=== PATIENT | male | born 1960 | race Caucasian/White ===

== ENCOUNTER 2019-09-06 09:37 | Outpatient (CLI) | payer BC, SELFPAY ==
--- NOTE | 2019-09-06 09:40 | ECG_ITS ---
Measurements Intervals [place] Rate: 55 P: -8 MD: 134 QRS: 28 QRSD: 126 T: 30 QT: 407 QTc: 391 Interpretive Statements SINUS BRADYCARDIA INTRAVENTRICULAR CONDUCTION DELAY DELAYED PRECORDIAL R/S TRANSITION VOLTAGE CRITERIA FOR LVH ST ELEVATION IN DIFFUSE, PROBABLY EARLY REPOLARIZATION BASELINE ARTIFACT- I, II, III, AVR, AVL, AVF BORDERLINE ECG Electronically Signed On 09-06-2019 11:04:29 SCREENING TECH by Walt Walker D.O.
== END 2019-09-06 09:38 | disposition home or self-care (01) ==
LOC: ANHSURGERY 09:40
PROVIDERS: PCP Family Medicine Sports Medicine; Visit Provider Orthopaedic Surgery
DX: Z01.810 Encounter for preprocedural cardiovascular examination (principal); M75.101 Unspecified rotator cuff tear or rupture of right shoulder, not specified as traumatic
CPT/HCPCS: 93005

== ENCOUNTER 2019-09-17 00:47 | Day surgery (SDC) | payer BC, SELFPAY ==
[2019-09-04 14:38] VITALS: BMI 21.9
--- NOTE | 2019-09-16 15:55 | WPDANESEPP ---
Anes - Eval Pre Procedure Procedure: Operation Date: 09/17/19 07:30 Proposed Procedures p Right Rotator Cuff Repair with Distal Clavicle Excision - Merlin Macias MD Date/Time: 09/16/19 15:55 Surgeon: Tez Macias MD Pre Op Diagnosis: Right Rotator Cuff Tear with AC Arthritis Patient Data Age: 59 Gender: M Height: 5 ft 7.5 in Weight: 64.41 kg Allergies Allergy/AdvReac Type Severity Reaction Status Date / Time No Known Allergies Allergy Verified 09/04/19 14:38 Home Medications Medication Instructions Recorded Confirmed Type zolpidem 10 mg tablet 10 mg PO HS 09/04/19 09/04/19 History ECG: Patient: Ronaldo Duron MMR#: [id number] : [id number]:[id number] Age/Sex: 59 / MADM Date: 09/06/19 Loc: [facility] Attending Dr: Merlin Macias MD Ordering Physician: Guanaco Almendarez DO Date of Service: 09/06/19 Procedure(s): CA 12 lead EKG Accession Number(s): [id number] cc: ~ Measurements Intervals [place] Rate: 55 P: -8 [place]: 134 QRS: 28 QRSD: 126 T: 30 QT: 407 QTc: 391 Interpretive Statements SINUS BRADYCARDIA INTRAVENTRICULAR CONDUCTION DELAY DELAYED PRECORDIAL R/S TRANSITION VOLTAGE CRITERIA FOR LVH ST ELEVATION IN DIFFUSE, PROBABLY EARLY REPOLARIZATION BASELINE ARTIFACT- I, II, III, AVR, AVL, AVF BORDERLINE ECG Electronically Signed On 09-06-2019 11:04:29 BUSINESS JOB TITLES by Walt Walker D.O. 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
[2019-09-17] VITALS (7 sets, daily range): BP systolic 96–148; BP diastolic 59–89; PULSE 51–83; RESP 12–18; TEMP 36.2–36.4; O2SAT 97–100
[2019-09-17] MEDS: LACTATED RINGERS 1,000 ML 30 ML IV CONT ×2 (06:40→09:15)
--- NOTE | 2019-09-17 06:59 | P.PNAN_ITS ---
Anes - Eval Final PreProcedure Day of Procedure 09/17/19 06:59 Patient weight: normal Heart: regular rate and rhythm Lungs: clear to auscultation and normal air movement Airway: Mallampati scale class II Neurological: alert and oriented Last oral intake: >/= 8 hours ASA classification: II Emergent: no Anesthetic plan: proceed Anesthesia type and monitoring: general ETT Informed Consent: The patient's anesthetic plan and its attendant risks and be nefits were discussed with the patient/family/POA. Questions were solicited and answers provided to the satisfaction of the patient/family/POA.
--- NOTE | 2019-09-17 07:08 | WPDANESPNB ---
Anes - Peripheral Nerve Block Date/Time: 09/17/19 07:08 I have discussed with the patient/family/POA the placement of a peripheral nerve block for post-operative pain management, including associated risks, benefits, complications, and side effects. Alternative methods of post-operative analgesia were detailed. Questions were solicited and answers provided to the satisfaction of the patient/family/POA. Time-Out: A pre-procedural Time-Out was completed immediately before starting the procedure and confirmed: Patient Identification, Site, Procedure, Patient Position and the Availability of Requisite Equipment. Clinical Indications: Acute post-operative pain management requested by the operative surgeon. Nerve Block Insertion Note Anes-nerve block: supraclavicular right Patient position: supine Skin prep: chlorhexidine Needle: 22 gauge, stimulating, insulated echogenic needle. Needle length: 80 mm Technique: ultrasound (in plane) Injectate: bupivacaine 0.5% with epi 5 mcg/ml (20cc) Observations: tolerated well Complications: none Procedure start time:: 735 Procedure end time:: 740
--- NOTE | 2019-09-17 07:35 | WPDHPUPDATE1 ---
History and Physical Update Update Date/Time: 09/17/19 07:35 History and Physical has been reviewed, including an updated exam of the patient. There are NO changes in the patient's condition. Risks, benefits, and alternatives have been discussed and questions answered. Patient agrees to proceed with procedure.
[2019-09-17] MEDS: ceFAZolin 2 GM/D5W 50 ML 2 GM/50 ML BAG IVPB (07:49)
[2019-09-17] MEDS: BUPIVACAINE/EPINEPHRINE 0.25% 10 ML VIAL INFILTRATE (08:21)
--- NOTE | 2019-09-17 09:16 | PM.PROC ---
Procedure Note - Detailed Date of procedure: 09/17/19 Pre-op diagnosis: Right Rotator Cuff Tear with AC Arthritis Post-op diagnosis: same Procedure performed: Right shoulder open anterior acromioplasty, distal clavicle excision with repair of the rotator cuff Description of procedure: Patient was identified and proper site identified. In the preop holding area the anesthesia team performed a right upper extremity block. He was then taken to the operating room and transferred to the or table taking care to pad his torso and extremities. After general anesthetic induction and intubation, he was put in a semi beach chair position in the usual manner for right shoulder procedure. His head was secured taking care to neither rotate nor extend the head and neck. The right upper extremity was prepped and draped free in usual sterile fashion. The subcutaneous tissue in the area of the incision was injected with 10 cc of 0.25% Marcaine and epinephrine solution. An oblique anterior incision was made extending from the AC joint distally in line with the fibers of the deltoid. Subcutaneous tissue was sharply dissected down to the deltoid fascia. The deltoid was dissected off the anterior portion of the acromion in the distal end of the clavicle. A 2 cm split was made at the junction between the anterior and middle thirds of the deltoid. Using the microsagittal saw the last 8 mm of clavicle removed. The saw was also used to perform the acromioplasty and then the undersurface of the acromion was rasped smooth. There was abundant thickened bursa which was sharply debrided for complete inspection of the rotator cuff. Corresponding to a was seen on the MRI, there was an area of marked thinning of the supraspinatus off of the anterior portion of the greater tuberosity. The thinned portion of the tendon was incised and the tendon edge freshened up. Tuberosity was also prepared for the repair. The rotator cuff was repaired back to the greater tuberosity with #2 Ethibond suture passed through a bony bridge giving a rankin repair which was stable as the shoulder was taken through range of motion. The wound was irrigated with sterile antibiotic solution. The deltoid was repaired back to the acromion with 2. Ethibond suture passed through bone and the remainder of the deltoid repair carried out with 2. Vicryl. Subcutaneous tissue was reapproximated with 2. Strata fix and then tissue adhesive used for the skin. Sterile dressing was applied. There were no known intraoperative complications, and perioperative antibiotics were administered. Anesthesia: GETA and regional (Right upper extremity block) Surgeon: Merlin Macias MD Barrel Lathe Operator: Tamela Estimated blood loss (mL): 20 Drains: No Packing: No Pathology: none sent Complications: No immediate complications Condition: stable Disposition: PACU
--- NOTE | 2019-09-17 11:04 | SUR.PHASEII ---
PT AND SPOUSE REQUESTED THAT I CALL DR. CRESPO TO CONFIRM THAT PT WILL NOT BE TAKING AN ANTIBIOTIC AT HOME.
== END 2019-09-17 11:00 | disposition home or self-care (01) ==
PROVIDERS: Visit Provider Orthopaedic Surgery
PROC: (CPT 23420; principal; 2019-09-17 07:30)
DX: M75.101 Unspecified rotator cuff tear or rupture of right shoulder, not specified as traumatic (principal); M19.011 Primary osteoarthritis, right shoulder; G89.18 Other acute postprocedural pain; Z87.891 Personal history of nicotine dependence
CPT/HCPCS: 23412; 23120; 64415; A4565; J0690; J1100; J2250; J2405; J2704; J2710; J7120

== ENCOUNTER 2021-11-19 12:48 | Outpatient (CLI) | payer OTHER, SELFPAY ==
--- NOTE | ~2021-11-19 | MR_ITS ---
EXAMINATION: MR knee RT wo con DATE: 11/19/2021 13:26 INDICATION: Right knee pain. TECHNIQUE: Magnetic resonance imaging (MRI) of the right knee was performed without intravenous contr ast. Sequences included axial PD-weighted FS FSE, coronal PD-weighted FSE and PD-weighted FS FSE, sag ittal PD-weighted FSE, and sagittal T2-weighted FS FSE. COMPARISON: Right knee radiographs 07/28/2021 FINDINGS: Medial compartment: There is a complex tear of body and posterior horn of medial meniscus. There is deep partial thicknes s cartilage loss of anteromedial tibial condyle with mild subchondral edema-like marrow signal intens ity. There is shallow partial-thickness cartilage loss of femoral condyle, worst at the lateral artic ular surface. Lateral compartment: Lateral meniscus is normal. Lateral compartment cartilage is normal. Patellofemoral compartment: There is focal full-thickness cartilage loss of patellar medial facet with mild subchondral edema-lik e marrow signal intensity. There is shallow partial-thickness cartilage loss of patellar lateral face t. There is deep partial thickness cartilage loss of medial and lateral trochlea. Ligaments and tendons: The anterior and posterior cruciate ligaments are normal. Medial collateral ligament and lateral jenna ateral ligament complex are normal. There is mild patellar tendinopathy. Fluid: There is a small knee joint effusion. There is a small Chappell's cyst. There is mild prepatellar and polk perficial infrapatellar bursitis. IMPRESSION: 1. Severe chondrosis of patellofemoral compartment and moderate chondrosis of medial compartment. 2. Complex tear of medial meniscus. 3. Small knee joint effusion. 4. Small Chappell's cyst. Reviewed, dictated and finalized at location A. IMPRESSION: 1. Severe chondrosis of patellofemoral compartment and moderate chondrosis of m edial compartment. 2. Complex tear of medial meniscus. 3. Small knee joint effusion. 4. Small Chappell's cyst.
== END 2021-11-19 12:49 | disposition home or self-care (01) ==
LOC: ANHIMG 12:50
PROVIDERS: PCP Family Medicine Sports Medicine; Visit Provider Orthopaedic Surgery
DX: M25.561 Pain in right knee (principal); M22.2X1 Patellofemoral disorders, right knee; S83.231A Complex tear of medial meniscus, current injury, right knee, initial encounter; M25.461 Effusion, right knee; M71.21 Synovial cyst of popliteal space [Baker], right knee
CPT/HCPCS: 73721

== ENCOUNTER 2025-01-11 14:31 | Outpatient (CLI) | payer MEDICARE, SELFPAY ==
--- NOTE | ~2025-01-11 | XR_ITS ---
EXAM: XR wrist LT 2V DATE: 01/11/2025 15:19 HISTORY: MULTIPLE JOINT PAIN . COMPARISON: X-ray hand and right wrist, same date. FINDINGS: Normal mineralization. No fracture or dislocation. No lytic or blastic lesion. Mild degene rative changes at the first MCP joint, first CMC joint, and triscaphe joint, as well as the radiocarp al joint. No erosion or periosteal change. Soft tissues within normal limits. 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 Reviewed, dictated and finalized at location K.
--- NOTE | ~2025-01-11 | XR_ITS ---
XR wrist RT 2V 01/11/2025 15:19 Indication: Polyarticular joint pain Procedure: 2 views right wrist Comparison: No prior studies for comparison. Findings: There is osteoarthritis of the triscaphe and first carpal metacarpal phalangeal joints. The re is mild osteoarthritis of the first interphalangeal and second metacarpal phalangeal joint. There is lucent defect in the ulnar styloid, likely degenerative. No fracture or traumatic malalignment. No significant soft tissue abnormality. No foreign bodies. Impression: 1: Mild polyarticular osteoarthritis. Reviewed, dictated and finalized at location A. Impression: 1: Mild polyarticular osteoarthritis.
--- NOTE | ~2025-01-11 | XR_ITS ---
XR_[id number]_CR 01/11/2025 15:19 Indication: Joint pain Procedure: 2 views right knee Comparison: No prior studies for comparison. Findings: There is anatomic alignment. No significant joint space narrowing. No fracture, subluxation or dislocation. No joint effusion. No foreign bodies. Impression: 1: No significant bone or joint abnormality. Reviewed, dictated and finalized at location A. Impression: 1: No significant bone or joint abnormality.
--- NOTE | ~2025-01-11 | XR_ITS ---
XR shoulder RT min 2V 01/11/2025 15:18 Indication: Right shoulder pain Procedure: 2 views right shoulder Comparison: 12/19/2019 Findings: There is mild polyarticular osteoarthritis of the right shoulder. No fracture, subluxation or dislocation. No soft tissue abnormality. Surrounding osseous structures unremarkable. Impression: 1: Mild polyarticular osteoarthritis. Reviewed, dictated and finalized at location A. Impression: 1: Mild polyarticular osteoarthritis.
--- NOTE | ~2025-01-11 | XR_ITS ---
EXAM: XR ankle RT 2V, XR foot LT 2V, XR foot RT 2V, XR ankle LT 2V DATE: 01/11/2025 15:19 HISTORY: MULTIPLE JOINT PAIN . COMPARISON: None available. FINDINGS: Normal mineralization. No fracture or dislocation. No lytic or blastic lesion. Extensive o ssification of the bilateral lower syndesmoses, typically a chronic posttraumatic finding. Scattered degenerative changes in the tibiotalar joints and multiple bilateral midfoot joints, with moderate de generative changes noted at the right first MTP joint. Moderate bilateral plantar and Achilles enthes opathy. Bilateral loss of the longitudinal arch. No erosion or periosteal change. Vascular calcificat ions. IMPRESSION: Polyarticular osteoarthritic arthritis of the ankles and feet, moderate in the right firs t MTP joint. Bilateral pes planus. Distal syndesmotic ossification, bilaterally. Reviewed, dictated and finalized at location K. IMPRESSION: Polyarticular osteoarthritic arthritis of the ankles and feet, mode rate in the right first MTP joint. Bilateral pes planus. Distal syndesmotic oss ification, bilaterally. IMPRESSION: Polyarticular osteoarthritic arthritis of the ankles and feet, mode rate in the right first MTP joint. Bilateral pes planus. Distal syndesmotic oss ification, bilaterally. IMPRESSION: Polyarticular osteoarthritic arthritis of the ankles and feet, mode rate in the right first MTP joint. Bilateral pes planus. Distal syndesmotic oss ification, bilaterally.
--- NOTE | ~2025-01-11 | XR_ITS ---
EXAM: XR hand BI arthritis min 3V DATE: 01/11/2025 15:18 HISTORY: MULTIPLE JOINT PAIN . COMPARISON: None available. FINDINGS: Normal mineralization. No fracture or dislocation. No lytic or blastic lesion. Mild scatte red degenerative changes in the hands and wrists, typical of osteoarthritis, most pronounced at the b ilateral first MCP joints, distal right ulna, and the left fourth PIP joint. No subluxations. Possibl e old left fourth proximal phalanx fracture versus small osteochondroma. No erosion or periosteal delfina nge. Soft tissues within normal limits. IMPRESSION: Mild polyarticular osteoarthritis of the hands. Reviewed, dictated and finalized at location K.
--- NOTE | ~2025-01-11 | XR_ITS ---
XR_[id number]_CR 01/11/2025 15:19 Indication: Polyarticular joint pain Procedure: 2 views left knee Comparison: No prior studies for comparison. Findings: No fracture, subluxation or dislocation. There is anatomic alignment. No fracture, subluxat ion or joint effusion. Impression: 1: No significant bone or joint abnormality. Reviewed, dictated and finalized at location A. Impression: 1: No significant bone or joint abnormality.
--- NOTE | ~2025-01-11 | XR_ITS ---
XR shoulder LT min 2V 01/11/2025 15:19 Indication: Polyarticular joint pain Procedure: 2 views left shoulder Comparison: No prior studies for comparison. Findings: There is polyarticular osteoarthritis of the shoulder. No acute fracture or traumatic malal ignment. No focal soft tissue abnormality. No foreign bodies. Impression: 1: Mild polyarticular osteoarthritis. Reviewed, dictated and finalized at location A. Impression: 1: Mild polyarticular osteoarthritis.
== END 2025-01-11 14:32 | disposition home or self-care (01) ==
PROVIDERS: PCP Family Medicine Sports Medicine; Visit Provider Internal Medicine Rheumatology
DX: M19.012 Primary osteoarthritis, left shoulder (principal); M19.011 Primary osteoarthritis, right shoulder; M19.032 Primary osteoarthritis, left wrist; M19.031 Primary osteoarthritis, right wrist; M19.042 Primary osteoarthritis, left hand; M19.041 Primary osteoarthritis, right hand; M19.072 Primary osteoarthritis, left ankle and foot; M19.071 Primary osteoarthritis, right ankle and foot
CPT/HCPCS: 73030; 73100; 73130; 73560; 73600; 73620